=== PATIENT | female | born 1985 | race African-American/Black ===

== ENCOUNTER 2020-01-31 14:18 | Emergency (ER) | payer OTHER ==
[2020-02-01 11:48] LABS: SARS-CoV-2 MS2 Positive; SARS-CoV-2 N Gene Negative; SARS-CoV-2 S Gene Negative; SARS-CoV-2 by NAA Not Detected (NotDetected); SARS-CoV-2 orf1ab Negative
== END 2020-01-31 14:35 | disposition home or self-care (01) ==
LOC: ERS 14:18
DX: Z20.828 Contact with and (suspected) exposure to other viral communicable diseases (principal); K21.9 Gastro-esophageal reflux disease without esophagitis; G47.30 Sleep apnea, unspecified; F41.9 Anxiety disorder, unspecified; F32.9 Major depressive disorder, single episode, unspecified; Z79.899 Other long term (current) drug therapy
CPT/HCPCS: 87635; 99283; U0003

== ENCOUNTER 2020-05-03 15:51 | Emergency (ER) | payer OTHER | END 2020-05-03 18:21 | disposition home or self-care (01) | LOC: ERS 15:51 | DX: S09.90XA Unspecified injury of head, initial encounter (principal); S13.4XXA Sprain of ligaments of cervical spine, initial encounter; R07.89 Other chest pain; M25.571 Pain in right ankle and joints of right foot; M54.2 Cervicalgia; M79.621 Pain in right upper arm; M79.661 Pain in right lower leg; F41.9 Anxiety disorder, unspecified; F32.9 Major depressive disorder, single episode, unspecified; F43.10 Post-traumatic stress disorder, unspecified; F17.210 Nicotine dependence, cigarettes, uncomplicated; G47.30 Sleep apnea, unspecified; K21.9 Gastro-esophageal reflux disease without esophagitis; Z79.899 Other long term (current) drug therapy; V43.62XA Car passenger injured in collision with other type car in traffic accident, initial encounter | CPT/HCPCS: 99284 ==

== ENCOUNTER 2022-01-25 08:41 | Emergency (ER) | payer OTHER ==
[2022-01-25 10:33] LABS: Bilirubin Negative (Negative); Blood, Urine Negative (Negative); Clarity Clear (Clear); Glucose, Urine (Dipstick) Normal (Negative); Ketone, Urine 10 mg/dL (Negative); Leukocyte Negative Leu/uL (Negative); Nitrite Negative (Negative); Protein, Urine (Dipstick) 20 mg/dL (Neg-Trace); Specific Gravity, Urine 1.015 (1.002-1.036); Urobilinogen Normal mg/dL (Less than 2)
[2022-01-25 10:41] LABS: Amphetamine Not Detected (NotDetected); Barbiturates Screen Not Detected (NotDetected); Benzodiazepine Screen Not Detected (NotDetected); Cocaine Metabolite Screen Not Detected (NotDetected); Methadone Not Detected (NotDetected); Methamphetamine Not Detected (NotDetected); Opiate Screen Not Detected (NotDetected); Oxycodone Screen Not Detected (NotDetected); Phencyclidine (PCP) Not Detected (NotDetected); THC/Cannabinoid Screen Detected (NotDetected); Tricyclic Screen Not Detected (NotDetected)
== END 2022-01-25 09:45 | disposition home or self-care (01) ==
LOC: ERS 08:41
DX: F41.9 Anxiety disorder, unspecified (principal); F32.A Depression, unspecified; F17.210 Nicotine dependence, cigarettes, uncomplicated; K21.9 Gastro-esophageal reflux disease without esophagitis; Z79.899 Other long term (current) drug therapy
CPT/HCPCS: 80306; 81003; 99283

== ENCOUNTER 2022-09-12 04:34 | Emergency (ER) | payer OTHER ==
[2022-09-12] MEDS ORDERED: LORazepam 2 MG/ML SYR.(CARPUJECT) ONE (05:14)
[2022-09-12] MEDS ORDERED: Ondansetron PF 4 MG/2 ML Vial ONE (05:15)
[2022-09-12 05:42] LABS: BHCG - Serum Negative (NEGATIVE); Pregs Control Background? CLEAR/WHITE (CLR/WHITE); Pregs Control Bar Appear? YES (CONTROL BAR)
[2022-09-12 05:45] LABS: #Lymphocytes 1.1 thou/uL (1.20-3.40); #Monocytes 0.3 thou/uL (0.11-0.59); %Basophils 0.4 % (0.0-1.0); %Eosinophils 0.3 % (0.0-10.0); %Lymphocytes 12.8 % (21.0-51.0); %Neutrophils 83.5 % (42.0-75.0); Hemoglobin 13.2 g/dL (12.0-16.0); Mean Corpuscular HGB CONC 34.4 g/dL (32.0-36.0); Mean Corpuscular Hemoglobin 33.3 pg (27.0-31.0); Mean Corpuscular Volume 96.8 fl (78.0-98.0); Mean Platelet Volume 7.2 fL (7.4-10.4); Platelet Count 432 10x3/uL (130-400); RBC Distribution Width 12.2 % (11.5-14.5); Red Blood Cell (RBC) Count 3.96 mill/uL (4.20-5.40); White Blood Cell (WBC) Count 8.4 10x3/uL (4.8-10.8)
[2022-09-12] MEDS ORDERED: Promethazine HCl 12.5 MG in Sodium Chloride 0.9% 50 ML IVPB SCH (06:45)
[2022-09-12 07:55] LABS: Albumin 4.4 g/dL (3.5-5.0)
[2022-09-12 07:57] LABS: Calcium 8.8 mg/dL (7.8-10.44); Chloride 105 mmol/L (98-107); Potassium 3.7 mmol/L (3.5-5.1); Sodium 135 mmol/L (136-145)
[2022-09-12 07:58] LABS: Globulin 3.6 g/dL (2.4-3.5); Glucose 126 mg/dL (70-105)
[2022-09-12 07:59] LABS: Anion Gap 11 mmol/L (10-20); Carbon Dioxide 23 mmol/L (22-29)
[2022-09-12 08:00] LABS: Bilirubin, Total 0.2 mg/dL (0.2-1.2)
[2022-09-12 08:01] LABS: Alkaline Phosphatase 66 U/L (40-110); Calc. Creatinine Clearance 0 mL/min (70-130); Estimated GFR 88
[2022-09-12 08:02] LABS: BUN (Urea Nitrogen) 8 mg/dL (7.0-18.7)
[2022-09-12 08:03] LABS: AST (SGOT) 15 U/L (5-34)
[2022-09-12 08:04] LABS: ALT (SGPT) 8 U/L (8-55); Lipase 8 U/L (8-78); Magnesium 1.9 mg/dL (1.6-2.6)
== END 2022-09-12 08:28 | disposition home or self-care (01) ==
LOC: ERS 04:34
DX: F41.9 Anxiety disorder, unspecified (principal); R11.2 Nausea with vomiting, unspecified; F17.210 Nicotine dependence, cigarettes, uncomplicated
CPT/HCPCS: 36415; 80053; 83690; 83735; 84703; 85025; 96365; 96375; J2060; J2405; J2550

== ENCOUNTER 2022-11-12 23:01 | Emergency (ER) | payer OTHER ==
[2022-11-13] MEDS ORDERED: Lorazepam 1 MG TAB ONE (00:34)
== END 2022-11-13 00:37 | disposition home or self-care (01) ==
LOC: ERS 23:01
DX: F41.9 Anxiety disorder, unspecified (principal); Z63.79 Other stressful life events affecting family and household
CPT/HCPCS: 99283

== ENCOUNTER 2023-05-05 13:53 | Emergency (ER) | payer OTHER, SELFPAY ==
[2023-05-05 14:42] LABS: #Monocytes 0.6 thou/uL (0.11-0.59); #Neutrophils 12.4 thou/uL (1.40-6.50); %Basophils 0.2 % (0.0-1.0); %Eosinophils 0.3 % (0.0-10.0); %Lymphocytes 6.1 % (21.0-51.0); %Monocytes 4.3 % (0.0-10.0); %Neutrophils 88.7 % (42.0-75.0); Hematocrit 42.8 % (36.0-47.0); Hemoglobin 14.6 g/dL (12.0-16.0); Mean Corpuscular HGB CONC 34.1 g/dL (32.0-36.0); Mean Corpuscular Hemoglobin 31.8 pg (27.0-31.0); Mean Corpuscular Volume 93.2 fl (78.0-98.0); Mean Platelet Volume 9.3 fL (7.4-10.4); Platelet Count 368 10x3/uL (130-400); RBC Distribution Width 13.3 % (11.5-14.5); Red Blood Cell (RBC) Count 4.59 mill/uL (4.20-5.40)
[2023-05-05 14:59] LABS: BHCG - Serum Negative (NEGATIVE); Pregs Control Background? CLEAR/WHITE (CLR/WHITE); Pregs Control Bar Appear? YES (CONTROL BAR)
[2023-05-05 15:07] LABS: ALT (SGPT) 11 U/L (8-55); AST (SGOT) 17 U/L (5-34); Albumin 4.7 g/dL (3.5-5.0); Alkaline Phosphatase 82 U/L (40-110); Anion Gap 17 mmol/L (10-20); BUN (Urea Nitrogen) 12 mg/dL (7.0-18.7); Bilirubin, Total 0.4 mg/dL (0.2-1.2); Calc. Creatinine Clearance 0 mL/min (70-130); Calcium 9.2 mg/dL (7.8-10.44); Carbon Dioxide 16 mmol/L (22-29); Chloride 108 mmol/L (98-107); Estimated GFR 96; Globulin 3.5 g/dL (2.4-3.5); Glucose 96 mg/dL (70-105); Lipase 21 U/L (8-78); Potassium 3.5 mmol/L (3.5-5.1); Protein, Total 8.2 g/dL (6.0-8.3); Sodium 137 mmol/L (136-145)
[2023-05-05] MEDS ORDERED: Ketorolac Tromethamine 30 MG/ML VIAL ONE (15:16)
[2023-05-05] MEDS ORDERED: Ondansetron PF 4 MG/2 ML Vial ONE ×2 (15:16→17:32)
[2023-05-05] MEDS ORDERED: Famotidine/PF 20 mg/2ml Vial ONE (15:18)
[2023-05-05 16:26] LABS: Bacteria/HPF None Seen HPF (None Seen); Bilirubin Negative (Negative); Blood, Urine Negative (Negative); CAUTI Indications for Culture Pelvic or flank pain; Clarity Clear (Clear); Glucose, Urine (Dipstick) Normal (Negative); Ketone, Urine 10 mg/dL (Negative); Leukocyte 25 Leu/uL (Negative); Nitrite Negative (Negative); Protein, Urine (Dipstick) Negative (Neg-Trace); RBC/HPF 0-3 HPF (0-3); Specific Gravity, Urine 1.048 (1.002-1.036); Urobilinogen Normal mg/dL (Less than 2); WBC/HPF 0-3 HPF (0-3)
[2023-05-05 16:28] LABS: Urine Culture Reflex No No
[2023-05-05] MEDS ORDERED: Ciprofloxacin 500 MG TAB ONE (17:14)
[2023-05-05] MEDS ORDERED: metroNIDAZOLE 250 MG TAB ONE (17:14)
[2023-05-05] MEDS ORDERED: Dicyclomine 20 MG TAB ONE (17:14)
== END 2023-05-05 17:57 | disposition home or self-care (01) ==
LOC: ERS 13:53
DX: K52.9 Noninfective gastroenteritis and colitis, unspecified (principal); K21.9 Gastro-esophageal reflux disease without esophagitis; F17.290 Nicotine dependence, other tobacco product, uncomplicated
CPT/HCPCS: 36415; 74177; 80053; 81001; 83690; 84703; 85025; 96361; 96374; 96375; 96376; J1885; J2405; S0028